=== PATIENT | female | born 1945 | race Caucasian/White ===

== ENCOUNTER 2016-09-30 15:35 | Inpatient (IN) | payer MEDICARE, OTHER ==
[~2016-09-30] VITALS: Ht 162.6 cm; Wt 82.9 kg
[~2016-09-30 15:35] MED LIST: ASCO100089 PO; ASPI-973 PO; DICL75TA6 PO; HYDR25TA4 PO; LEVO125T6 PO; LISI-571 PO; METF850T2 PO; METO-272 PO; MULT-1007 PO; OMEP10CA2 PO; OXYB5TAB10 PO; PARO20TA5 PO; SIMV40TA5 PO
[2016-09-30 15:40] VITALS: BP 146/96; PULSE 88; RESP 18; O2SAT 100
--- NOTE | 2016-09-30 15:56 | ED.REPORT ---
HPI-General Illness Date of Service Sep 30, 2016 ED Provider: Mickey Mckeon DO A 71 year old female with a history of stroke, lymphoma, heart stents, and pinched neck nerves presents to the ED complaining of SOB onset 3 days ago. SOB is only present when the patient moves, only being able to take 5 steps before she needs to catch her breath. Associated symptoms include mild chest pain described as cool and heavy feeling present from her left to right armpit that accompanies SOB episodes. She reports that she has never felt this way before. Symptoms are slightly similar to when she had a heart stent in 20 years ago which had accompanying chest pain and SOB. She denies any cough ,fever, or sickness. She recently tested negative for Pneumonia after receiving a chest XRay. 1-2 years ago the patient had a stroke, and 6 months later she had two pinched nerves in her neck that felt like a stroke. She has an appointment in 4 days to see her basket operator, Dr. Alfaro. Nursing Notes Stated Complaint: SOB Chief Complaint: Chest Pain Nursing Notes Reviewed: Yes Allergies: Coded Allergies: No Known Allergies (Verified Allergy, Unknown, 09/30/16) Scheduled Ascorbic Acid (Vitamin C) 1,000 Mg Tab.chew 1,000 MG PO DAILY Aspirin (Aspirin) 81 Mg Tablet 81 MG PO DAILY Diclofenac ER (Diclofenac ER) 75 Mg Tablet.dr 75 MG PO DAILY Hydrochlorothiazide (Hydrochlorothiazide) 25 Mg Tablet 25 MG PO DAILY Levothyroxine (Levothyroxine) 125 Mcg Tablet 125 MCG PO QAM Losartan Potassium (Losartan Potassium) 25 Mg Tablet 25 MG PO DAILY Metformin (Metformin) 850 Mg Tablet 850 MG PO BIDWM Metoprolol Succinate ER (Metoprolol Succinate ER) 50 Mg Tab.er.24h 25 MG PO DAILY Multivit with Calcium,Iron,Min (Therapeutic M) 1 Each Tablet 1 EACH PO DAILY Oxybutynin Chloride (Oxybutynin Chloride) 5 Mg Tablet 5 MG PO BID Paroxetine (Paroxetine) 20 Mg Tablet 40 MG PO DAILY Simvastatin (Simvastatin) 40 Mg Tablet 40 MG PO DAILY General Time Seen by MD: 15:56 Chief Complaint Other (Shortness of breathe) Hx Obtained From: Patient Arrived By: Walk-in Sudden in Onset?: Yes Onset Occurred: 3 days ago Symptom Duration: Intermittent Recent Healthcare: No recent doctor visit Similar Sx Previous: No Past Medical History Past Medical History Urinary incontinence CVA, november 2014 lymphoma pinched neck nerve Reports: Coronary artery disease, Diabetes mellitus, Hyperlipidemia, Hypertension, Stroke Past Surgical History Cardiac stent placement Back surgeries for scoliosis with fusions. Family History noncontributory Smoking History Unknown if Ever Smoker Social History Drug Use: Denies drug use Other Social History: , Local resident Ambulatory Status Independent Review of Systems Denies sickness. Full Review of Systems Constitutional: Denies: Fever Respiratory: Reports: Shortness of breath, Denies: Non-productive cough Cardiovascular: Reports: Chest pain Complete sys rev & neg: except as marked. Physical Exam Vital Signs Vital Signs Date Time Temp Pulse Resp B/P Pulse Ox O2 Delivery O2 Flow Rate FiO2 09/30/16 17:36 78 19 131/70 98 09/30/16 15:40 36.7 88 18 146/96 100 Room Air Initial VS: Reviewed General/Constitutional: Awake, Alert Head / Eyes: Atraumatic, Normocephalic, PERRL, EOMI ENT: Atraumatic, Airway patent, Mucous membranes moist Neck: Atraumatic, Full range of motion Respiratory / Chest: Atraumatic, Breath sounds = bilat Cardiovascular: Heart rate NL, Regular rhythm, Heart sounds NL Abdomen: Atraumatic, No guarding, No rebound Back: Atraumatic, Full range of motion Upper Extremities Upper Extremity / MS: Atraumatic, Full range of motion Wrist / Hand: Atraumatic, Full range of motion Lower Extremity / Pelvis / MS: Atraumatic, Full range of motion Skin: Atraumatic, Color NL Neurologic: Oriented X3, Speech NL Interpretation & Diagnostics Lab Results Interpretation Result Diagram: 09/30/16 1600 09/30/16 1600 Test 09/30/16 16:00 White Blood Count 7.5th/mm3 (3.8-10.1) Red Blood Count 4.49mil/mm3 (3.90-5.20) Hemoglobin 11.3g/dL (12.0-15.6) Hematocrit 35.4% (35.0-46.0) Mean Corpuscular Volume 78.8fL (81-100) Mean Corpuscular Hemoglobin 25.2pg (27.0-35.0) Mean Corpuscular Hemoglobin Concent 31.9% (32.0-37.0) Red Cell Distribution Width 14.1% (12.3-15.4) Platelet Count 379bil/L (150-400) Neutrophils (%) (Auto) 66.9% (40-74) Lymphocytes (%) (Auto) 23.3% (14-46) Monocytes (%) (Auto) 8.4% (4-12) Eosinophils (%) (Auto) 0.5% (0-5) Basophils (%) (Auto) 0.5% (0-3) Activated Partial Thromboplast Time 26.1sec (22.8-33.0) Sodium Level 135mEq/L (134-144) Potassium Level 4.4mEq/L (3.5-5.2) Chloride Level 96mEq/L (97-108) Carbon Dioxide Level 20mmol/L (18-29) Blood Urea Nitrogen 35mg/dL (8-27) Creatinine 1.54mg/dL (0.57-1.00) Estimat Glomerular Filtration Rate 47mL/min (>59) Glucose Level 128mg/dL (60-99) Calcium Level 8.9mg/dL (8.5-10.1) Magnesium Level 1.5mg/dL (1.6-2.6) Total Bilirubin 0.2mg/dL (0.0-1.2) Aspartate Amino Transf (AST/SGOT) 20U/L (0-50) Alanine Aminotransferase (ALT/SGPT) 22U/L (0-32) Alkaline Phosphatase 71U/L (25-165) Troponin T < 0.010ug/L (0.0-0.011) Total Protein 6.8g/dL (6.4-8.4) Albumin 4.2g/dL (3.4-5.0) Hold Hartman Top Tube Received (Received) CT Chest Interpretation PROCEDURE: CT ANGIO CHEST PULMONARY EMBOLISM ([id number]) IMPRESSION: 1. Suboptimal examination due to respiratory motion artifacts in lower lobes. 2. There are small filling defects in lower lobe basal segmental arteries bilaterally suspicious for small pulmonary emboli. 3. Small bilateral effusions. 4. Reflux of contrast into the hepatic vein, suggesting poor cardiac output. Dictated by: Bro Villeda M.D. on 09/30/2016 at 18:02 Approved by: Bro Villeda M.D. on 09/30/2016 at 18:10 Interpretation / Wet Read by: Discussed w radiologist Re-Eval/Medical Decision Med Decision/Clinical Course Small bilateral pulmonary emboli, will anticoagulate and admit. Heparin initiated in the ER Source of Hx: Old records Time of Eval: 15:56 Re-Evaluation/Progress Note: Rechecked patient and explained plan for treatment. Consultation : Referral / Consult Name: Lamont Guajardo MD Call Returned at: 18:31 Leaf Sticker: Agrees with eval, Agrees with plan, Accepts admit Note: Discussed patient case with Dr. Guajardo who accepts patient admit. Counseled Regarding: Diagnosis, Lab results, Need for admission Discharge & Departure Primary Impression: Pulmonary embolism Disposition: ADMITTED TO HOSPITAL Discharge Condition All VS Reviewed: Yes Condition: Improved Referrals: NOPCP (PCP) Crit Care Except Billable Proc Time Spent: 30-74 minutes Services Performed: Patient management by me, Time spent at bedside, Reviewing test results Critical Care Notes: See MDM Scribe Attestation Portions of this note were transcribed by Mark Anthony Gill. I, Dr. Mckeon personally performed the history, physical exam and medical decision-making; I reviewed and confirmed the accuracy of the information in the transcribed note. Signed by: Crispin Carranza, 09/30/2016 [id number]. copies to: Mickey Grant DO Sep 30, 2016 15:56 Mark Anthony Gill Sep 30, 2016 16:05
[2016-09-30 16:13] LABS: BASOPHILS % (AUTO) 0.5 % (0-3); EOSINOPHILS % (AUTO) 0.5 % (0-5); MONOCYTES % (AUTO) 8.4 % (4-12); Mean Corpuscular Hemoglobin 25.2 pg (27.0-35.0); Mean Corpuscular Volume 78.8 fL (81-100); NEUTROPHILS % (AUTO) 66.9 % (40-74); Platelet Count 379 bil/L (150-400)
[2016-09-30 16:39] LABS: TROPONIN T < 0.010 ug/L (0.0-0.011)
[2016-09-30 16:50] LABS: Magnesium 1.5 mg/dL (1.6-2.6)
[2016-09-30 17:36] VITALS: BP 131/70; PULSE 78; RESP 19; O2SAT 98
--- NOTE | 2016-09-30 18:12 | DRSVH ---
PROCEDURE: CT ANGIO CHEST PULMONARY EMBOLISM ([id number]) INDICATIONS: elevated ddimer, dyspnea, h/o Ca TECHNIQUE: After the administration of intravenous contrast, 2 mm thick sections acquired from the pulmonary api ankush to the posterior costophrenic angles. 3-dimensional maximum intensity projection (MIP) coronal a nd sagittal reformats were then acquired through the thorax. For radiation dose reduction, the follo wing was used: automated exposure control, adjustment of mA and/or kV according to patient size. COMPARISON: JOSELYN Marc, CHEST 2VW, 09/30/2016, 12:46 PM. FINDINGS: Image quality: Somewhat suboptimal because of respiratory motion artifacts in lower spine laterally. Pulmonary arteries: Pulmonary arteries are normal in size. There are small intraluminal filling defe cts in lower lobe basal segmental arteries suggesting central pulmonary embolism. Lungs and pleura: There are small bilateral pleural effusions. No pneumothorax. Central and peripher al airways are patent. Mediastinum: Heart size is normal, without pericardial effusion. No mediastinal or hilar adenopathy . Thoracic aorta is normal in caliber and enhancement. Esophagus is normal in caliber, without hiat al hernia. Bones and chest wall: No suspicious bony lesions. Ribs and thoracic spine appear intact throughout. Thyroid gland is normal. No axillary or supraclavicular adenopathy. Abdomen: Visualized upper abdominal solid organs appear normal in the early arterial phase of enhanc ement. IMPRESSION: 1. Suboptimal examination due to respiratory motion artifacts in lower lobes. 2. There are small filling defects in lower lobe basal segmental arteries bilaterally suspicious for small pulmonary emboli. 3. Small bilateral effusions. 4. Reflux of contrast into the hepatic vein, suggesting poor cardiac output. Dictated by: Bro Villeda M.D. on 09/30/2016 at 18:02 Approved by: Bro Villeda M.D. on 09/30/2016 at 18:10
[2016-09-30] MEDS ORDERED: Heparin 25K Unit/500mL 0.45 NS 25,000 UNIT in IV Premix 1 EACH IV ONE (18:20)
[2016-09-30] MEDS ORDERED: Heparin 5,000 Unit/mL Inj IVPUSH ONE (18:20)
[2016-09-30] MEDS ORDERED: LOSA25TA21 PO (18:32)
[2016-09-30] MEDS ORDERED: MULT-140 PO (18:32)
[2016-09-30] MEDS ORDERED: Ondansetron 2 mg/mL 2 mL Inj IVPUSH PRN (18:55)
[2016-09-30] MEDS ORDERED: Alum-Mag Hydrox-Simeth 30 mL Suspension PO PRN (18:55)
[2016-09-30 19:24] VITALS: BP 129/72; PULSE 82; RESP 21; O2SAT 97
[2016-09-30] MEDS ORDERED: Heparin 5,000 Unit/mL Inj IVPUSH PRN (19:25)
[2016-09-30] MEDS ORDERED: Heparin 25K Unit/500mL 0.45 NS 25,000 UNIT in IV Premix 1 EACH IV SCH (19:25)
[2016-09-30] MEDS ORDERED: Magnesium Sulf 2 Gm/50mL Water 2 GM in IV Premix 1 EACH IV ONE (19:30)
--- NOTE | 2016-09-30 19:35 | PCM.HPMED ---
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 She has been complaining of shortness of breath over the last 3-5 days or so. Patient stated she will become short of breath on minimal exertion such as a few steps. She went to see her primary care doctor who decided his that emergency room for for evaluation. Patient denied denied chest pain but stated she has been having some chest heaviness similar to when she have her heart attack several years ago. Indeed she is asking to be seen by pcmh specialist because she thinks her shortness of breath is cardiac. Patient usually ambulates with a cane due to by problem. She stated the shortness of breath is new. She denied any fever , chills, abdominal pain, lower extremity swelling. In the emergency room CT scan of the chest with PE protocol showed bilateral pulmonary embolism. Review of Systems: Review of systems is pertinent for shortness of breath which exacerbated on exertion or otherwise a comprehensive review by 12 points is negative Allergies Coded Allergies: No Known Allergies (Verified Allergy, Unknown, 09/30/16) Home Medications Scheduled Ascorbic Acid (Vitamin C) 1,000 Mg Tab.chew 1,000 MG PO DAILY Aspirin (Aspirin) 81 Mg Tablet 81 MG PO DAILY Diclofenac ER (Diclofenac ER) 75 Mg Tablet.dr 75 MG PO DAILY Hydrochlorothiazide (Hydrochlorothiazide) 25 Mg Tablet 25 MG PO DAILY Levothyroxine (Levothyroxine) 125 Mcg Tablet 125 MCG PO QAM Losartan Potassium (Losartan Potassium) 25 Mg Tablet 25 MG PO DAILY Metformin (Metformin) 850 Mg Tablet 850 MG PO BIDWM Metoprolol Succinate ER (Metoprolol Succinate ER) 50 Mg Tab.er.24h 25 MG PO DAILY Multivit with Calcium,Iron,Min (Therapeutic M) 1 Each Tablet 1 EACH PO DAILY Oxybutynin Chloride (Oxybutynin Chloride) 5 Mg Tablet 5 MG PO BID Paroxetine (Paroxetine) 20 Mg Tablet 40 MG PO DAILY Simvastatin (Simvastatin) 40 Mg Tablet 40 MG PO DAILY PMH 1. Type II diabetes 2. Hypertension 3. CVA 4. Hypercholesterolemia 5. Coronary artery disease 6. Urinary incontinence 7. Lymphoma Surgical History Cardiac stent placement Back surgeries for scoliosis with fusions Family History Family history is reviewed and is noncontributory to the present illness Social History Hx Alcohol Use: No Hx Substance Use: No Smoking Status: Unknown if Ever Smoker Living Arrangement: with Family Exam Vital Signs Vital Sign - Last Date Time Temp Pulse Resp B/P Pulse Ox O2 Delivery O2 Flow Rate FiO2 09/30/16 17:36 78 19 131/70 98 09/30/16 15:40 36.7 Room Air Exam Constitutional: Well-nourished female in bed comfortably. In no acute distress. HEENT: Normocephalic and atraumatic. Sclerae anicteric. PERRL Mouth: Muscle mucosa, no thrush. Neck: Supple, no JVD, no carotid bruit, trachea is midline Chest: Normal respiratory effort and no chest wall deformity or tenderness. Long: Clear bilateral renal cortical, no wheezing Heart: S1, S2 regular rate and rhythm. No gallop, no murmur Abdomen: Soft, nontender, nondistended. Bowel sounds normal or quadrant. No palpable mass Extremities: No edema, no calf tenderness. No cyanosis Neuro : Grossly nonfocal Lab and Diagnostics Result Diagram: 09/30/16 1600 09/30/16 1600 X-Rays, CTs and MRIs CT angiogram of the chest reviewed : 1. Suboptimal examination due to respiratory motion artifacts in lower lobes. 2. There are small filling defects in lower lobe basal segmental arteries bilaterally suspicious for small pulmonary emboli. 3. Small bilateral effusions. 4. Reflux of contrast into the hepatic vein, suggesting poor cardiac output. Assessment & Plan 1. Acute pulmonary embolism 2. Acute renal failure 3. Bilateral pleural effusion Chronic medical problems 1. Type II diabetes 2. Hypertension 3. CVA 4. Hypercholesterolemia 5. Coronary artery disease 6. Urinary incontinence 7. Lymphoma Admitting inpatient . Telemetry monitoring/. Heparin protocol for pulmonary embolism. Coumadin or novel anticoagulant for long-term treatment and prophylaxis depending on trend of creatinine. Obtain 2D echocardiogram. Start cautious hydration with normal saline at 50 mL per hour for acute renal failure. Repeat BMP in the morning. Hold losartan, Lovenox, metformin Sliding scale insulin with low scale correction. Obtain mammogram and A1c. Medication reviewed and reconciled. ( see orders ) . Replace magnesium . Hospital stay between 2-3 days anticipated. VTE Prophylaxis: Other (Heparin protocol for PE ) Resuscitation Status: CPR: Attempt Resuscitation Time spent 75 minutes Lamont Guajardo MD Sep 30, 2016 19:35
[2016-09-30 19:46] VITALS: BP 116/73; PULSE 62; RESP 18; O2SAT 95
--- NOTE | 2016-09-30 19:50 | NUR ---
Admission Note Pt admitted to [facility] from ER on stretcher at 1935, alert and orientedx3, denies any pain/NV/Fever/chills/dizziness/vertigo. Pt states non productive cough intermittently,SOB with activities. Stood up and walked to bed on arrival,gait steady. BP116/73,HR62 RR 18,SPO2 95% on RA, T36.6. O2 2l applied per MD oral instruction. Moderately decreased lung sounds bilaterally, coarse lung sounds bilateral posterior LLs. Tele applied SR 76 IVCD per monitoring manager. No murmur. Abdomen soft, non tender, BT active. No edema at bilateral LLs. Heparin bolus 6400 units administered at ER and Heparin drip 18units/kg/hr administered at ER per [employer] S[employer]IOR MANAGER Manuelito. S report, and running on arrival. Need 2nd IV to administer Mg and D5WNS. Care ongoing. Call light oriented to pt.
[2016-09-30 19:58] VITALS: O2SAT 96
[2016-09-30] MEDS ORDERED: Insulin Human REGular 300 Unit/3 mL Inj SUBQ SCH (20:30)
[2016-09-30] MEDS ORDERED: Dextrose 5% 0.9% NaCl 1,000 ML IV SCH (20:45)
[2016-10-01] VITALS (7 sets, daily range): BP systolic 119–143; BP diastolic 69–91; PULSE 74–85; RESP 18; O2SAT 96–100
[2016-10-01 02:46] LABS: APPEARANCE,URINE CLEAR (CLEAR,HAZY); COLOR,URINE YELLOW (YELLOW); OCCULT BLOOD,URINE TRACE (NEGATIVE)
[2016-10-01 02:47] LABS: UROBILINOGEN,URINE NORMAL (NORMAL)
--- NOTE | 2016-10-01 03:27 | NUR ---
PTT Heparin Lab called at 209: PTT 232 , Heparin drip hold, PTT will be redrawn at 0220 in 1 hour from last PTT drawn per DVT/PE protocol,lab notified,Dr. Castro pagealessio at 214,no order given. Lab called at 309 PTT 239,Heparin continue held, PTT will be redrawn at 0320 in 1 hour from last PTT drawn,lab notified, Dr. Castro paged at 318,no order given. Addendum: 10/01/16 at 423 by SCOTT TENORIO RN Lab called at 358: PTT 94.1. Resume Heparin at 0400,decrease 1unit/kg/hr,restart rate at 17unit/kg/hr, dose change verified with urvashi Archuleta. Next PTT in 6hr at 1000. Addendum: 10/01/16 at 423 by SCOTT TENORIO RN No active bleeding noted.
--- NOTE | 2016-10-01 05:07 | NUR ---
Low urine output Low urine output 150ml for 10hrs. PVR 83 ml. D5WNS 50ml/hr running. Dr. Castro paged at [phone], no order given, said "talk to day team". Push oral fluids.
[2016-10-01 06:42] LABS: BASOPHILS % (AUTO) 1.5 % (0-3); EOSINOPHILS % (AUTO) 1.7 % (0-5); MONOCYTES % (AUTO) 9.4 % (4-12); Mean Corpuscular Hemoglobin 25.1 pg (27.0-35.0); Mean Corpuscular Volume 77.1 fL (81-100); NEUTROPHILS % (AUTO) 61.3 % (40-74); Platelet Count 321 bil/L (150-400)
[2016-10-01 06:57] LABS: Magnesium 2.1 mg/dL (1.6-2.6)
[2016-10-01] MEDS: PARoxetine 20 mg Tablet PO SCH (08:36)
[2016-10-01] MEDS: MeTOProlol XL 25 mg ER24 Tablet PO SCH (08:36)
[2016-10-01] MEDS: Insulin Human REGular 300 Unit/3 mL Inj SUBQ SCH ×4 (08:38→21:48)
--- NOTE | 2016-10-01 11:01 | DRSVH ---
[facility] [address] [place] [address] Echocardiogram Report Name: CARLOTA DIAL JStudy Date: 10/01/2016 Height: 64 in Hospital Exam Location: [facility] Weight: 180 lb Gender: Female BSA: 1.9 m2 : 1945 Age: 71 yrs BP: 121/69 mmHg Reason For Study: Pulmonary- Embolism, SOB History: CAD Performed By: Maynor Whittaker Referring Physician: MIGUEL LAGUNAS Interpretation Summary The left ventricle is mildly dilated. The ejection fraction is estimated to be 15-20%. There is severe global hypokinesis of the left ventricle. There is mid inferior wall akinesis. There is apical inferior wall akinesis. Assessment of diastolic parameters suggests a pseudonormalization pattern, consistent with elevated filling pressures. The right ventricle is mildly dilated. Right ventricular systolic function is moderately reduced. There is severe mitral regurgitation. Flow reversal noted in pulmonary veins consistent with significant mitral regurgitation. The aortic valve is moderately calcified. A bicuspid aortic valve cannot be excluded. Leaflet mobility is mildly reduced. There is no hemodynamically significant valvular aortic stenosis. The IVC is dilated (diameter is greater than 2.1 cm) and it collapses less than 50% with a sniff. This suggests a high right atrial pressure of 15 mm Hg. Procedure: A two-dimensional transthoracic echocardiogram with color flow and Doppler was performed. The study quality was technically adequate. There is no prior echocardiogram noted for this patient. The patient was in normal sinus rhythm during the exam. The patient had a bundle branch block rhythm during the exam. Left Ventricle: The left ventricle is mildly dilated. Left ventricular wall thickness is mildly increased. There is no thrombus. The ejection fraction is estimated to be 15-20%. There is severe global hypokinesis of the left ventricle. There is mid inferior wall akinesis. There is apical inferior wall akinesis. Assessment of diastolic parameters suggests a pseudonormalization pattern, consistent with elevated filling pressures. The E/E' ratio is abnormal. Right Ventricle: The right ventricle is mildly dilated. Right ventricular systolic function is moderately reduced. Atria: The left atrium is moderately dilated. The right atrium is mildly dilated. The interatrial septum is intact with no evidence for an atrial septal defect. Mitral Valve: The mitral valve leaflets appear mildly thickened, but open well. There is mild mitral annular calcification. The mitral valve leaflets are slightly calcified. There is severe mitral regurgitation. Flow reversal noted in pulmonary veins consistent with significant mitral regurgitation. Aortic Valve: The aortic valve is moderately calcified. A bicuspid aortic valve cannot be excluded. Leaflet mobility is mildly reduced. The peak aortic velocity is 1.6 m/sec. The calculated aortic valve area is 0.9 cm2. Reduced KERLINE may be secondary to low LV function. There is no hemodynamically significant valvular aortic stenosis. No aortic regurgitation is present. Tricuspid Valve: The tricuspid valve is not well visualized, but is grossly normal. Pulmonary artery pressures cannot be estimated because of the lack of a measurable TR jet velocity. There is mild tricuspid regurgitation. Pulmonic Valve: The pulmonic valve is not well seen, but is grossly normal. There is trace pulmonic regurgitation. Great Vessels: The aortic root is normal size. The dimensions of the ascending aorta are normal. The pulmonary artery is normal size. The IVC is dilated (diameter is greater than 2.1 cm) and it collapses less than 50% with a sniff. This suggests a high right atrial pressure of 15 mm Hg. Pericardium/ Pleura There is no pericardial effusion. There is no pleural effusion. MMode/2D Measurements & Calculations LVIDd: 5.5 cm RA long axis LVOT diam: 2.1 cm LVIDs: 4.9 cm LA A2 area: 19.1 cm Ao root diam FS: 11.0 % LA A4 area: 20.4 cm RA area EPSS: 2.0 cm LA length (vol) asc Aorta Diam IVSd: 1.0 cm : 20.2 cm LVPWd: 0.95 cm LA vol: 62.4 ml RA vol Ao Arch Diam (Prox LA vol index : 64.2 ml Trans): 2.2 cm RA : 34.3 mm2 IVC diam: 2.2 cm LV deal. diameter/BSA LV sys. diameter/BSA TAPSE: 1.1 cm (cm/m^2): 2.9 (cm/m^2): 2.6 Doppler Measurements & Calculations Ao V2 max MV E max jerome MV E/A: 1.3 PA V2 max : 162.9 cm/sec : 95.6 cm/sec Med Peak E' Jerome : 49.8 cm/sec Ao max PG MV A max jerome PA mean PG : 10.6 mmHg : 71.8 cm/sec E/E' med: 39.5 : 0.47 mmHg Ao mean PG Lat Peak E' Jreome MR ERO: 0.27 cm2 LVOT Max Jerome E/E' lat: 21.1 : 48.6 cm/sec E/e' average KERLINE(I,D) : 0.90 cm sev ratio MV dec time Ao V2 mean LV V1 max PG MR flow rate : 0.15 sec : 127.4 cm/sec : 130.8 cm3/sec Ao V2 VTI: 32.2 cm LV V1 VTI: 8.3 cm MR PISA radius KERLINE(V,D): 1.0 cm2 PA V2 mean KERLINE indexed to BSA : 32.0 cm/sec (cm^2/m^2): 0.48 PA pr(Accel) : 43.2 mmHg Reading Physician:MARRY
--- NOTE | 2016-10-01 13:42 | PCM.PNMED ---
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 This morning, she continues to have dyspnea on exertion, especially when she gets up to bedside commode and even when moving around in bed. She has chest heaviness. She does not have fever, chills, cough, or leg swelling or leg pain. She reports that she received chemotherapy and radiation to her neck and chest for lymphoma 17 years ago. Exam Vital Signs Vital Sign - Last Date Time Temp Pulse Resp B/P Pulse Ox O2 Delivery O2 Flow Rate FiO2 10/01/16 10:35 36.2 77 18 119/76 100 Nasal Cannula 2.00 Intake and Output 09/30/16 09/30/16 10/01/16 Cumulative From/Thru 15:00 23:00 07:00 09/30/16 15:40 - 10/01/16 06:17 Intake Total 716 ml 716 ml Output Total 150 ml 150 ml Balance 566 ml 566 ml Intake Oral 200 ml 200 ml IV Total 516 ml 516 ml Output Urine Total 150 ml 150 ml Exam Constitutional: Well-nourished female in bed comfortably. In no acute distress. HEENT: Normocephalic and atraumatic. Sclerae anicteric. PERRL Mouth: Muscle mucosa, no thrush. Neck: Supple, no JVD, no carotid bruit, trachea is midline Chest: Normal respiratory effort and no chest wall deformity or tenderness. Lung: Clear to auscultation bilaterally with no rales, rhonchi, or wheezing. Heart: S1, S2 regular rate and rhythm. No gallop, no murmur Abdomen: Soft, nontender, nondistended. Bowel sounds normal or quadrant. No palpable mass Extremities: No edema, no calf tenderness. No cyanosis Neuro : Grossly nonfocal IVs and Medications Medications Reviewed: Medications were reviewed in detail Lab and Diagnostics Result Diagram: 10/01/1620 10/01/16 06 X-Rays, CTs and MRIs PROCEDURE: CT ANGIO CHEST PULMONARY EMBOLISM IMPRESSION: 1. Suboptimal examination due to respiratory motion artifacts in lower lobes. 2. There are small filling defects in lower lobe basal segmental arteries bilaterally suspicious for small pulmonary emboli. 3. Small bilateral effusions. 4. Reflux of contrast into the hepatic vein, suggesting poor cardiac output. Approved by: Bro Villeda M.D. 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 1. Acute pulmonary embolism, present on admission, active. -Visualized on CT scan -Heparin protocol for pulmonary embolism. -Telemetry monitoring -Bilateral venous duplex ultrasound to look for DVT 2. Systolic congestive heart failure, chronicity unknown, present on admission, active. -Pt has a history of CAD and radiation therapy for lymphoma. Possible acute coronary syndrome may have acutely worsened. -Echocardiogram today shows EF 15-20% -Likely the cause of bilateral pleural effusions -Daily weight -Monitor input and output -Continue aspirin 81 mg once daily, atorvastatin 20 mg at bedtime, and metoprolol succinate 25 mg daily. Hold JANNETTE inhibitor for now due to RHETT. -Stopped IV fluids -Consider adding furosemide 40 mg daily -Cardiology consulted and following. Their time and recommendations are appreciated. -Possible cardiac catheterization tomorrow to assess coronary artery disease 3. Bilateral pleural effusion, present on admission, active. -Likely secondary to above 4. Acute renal failure, present on admission, improving. -BUN 35, Cr 1.54 on admission -Possibly cardiorenal -Hold losartan, Lovenox, metformin -Stopped IV fluids 5. Hypomagnesium, acute, present on admission, resolved. -Pt was given magnesium replacement Chronic medical problems 1. Type II diabetes, on metformin -HgbA1c is 7.1% -Low dose correctional scale -Monitor blood glucose level and consider adding basal insulin 2. Hypertension -Continue hydrochlorothiazide 25 mg once daily and metoprolol succinate 25 mg once daily -Hold JANNETTE inhibitor due to RHETT as above 3. CVA, chronic. -Continue aspirin and atorvastatin 4. Hypercholesterolemia -Continue atorvastatin 5. Coronary artery disease -See above 6. Urinary incontinence -Patient has had a decreased urine output but no post residual volume 7. Lymphoma -In remission Acetaminophen as needed for pain or fever. Zofran as needed for nausea/vomiting. Senna and Miralax as needed for constipation. Maalox as needed for heartburn. VTE Prophylaxis: Other (Heparin protocol for PE ) Resuscitation Status: CPR: Attempt Resuscitation Time spent 30 minutes Attending Statement I have seen and evaluated patient at bedside in addition to directly supervising care provided by resident physician. I agree with above documentation. Katty Munoz DO Oct 01, 2016 13:34 Bob Phillips DO Oct 02, 2016 07:42
[2016-10-01] MEDS ORDERED: Polyethylene Glycol (PEG) 17 Gm Powder PO PRN (14:00)
--- NOTE | 2016-10-01 14:00 | PCM.CHPCAR ---
Consult Subjective Date of service Oct 01, 2016 Date of admit Sep 30, 2016 at 18:59 Provider Requesting Consult Primary Care Physician Primary Care Physician: Other,Physician Chief Complaint Exertional angina, BEVERLY, PE History of Present Illness This is a very pleasant 80-year-old lady with history of coronary artery disease and stent placement 15 years ago done in [facility] (her occupational health specialist is Dr. Henry) at this point we do not have medical records and do not known which artery was stented; the patient states that she did not have heart attack back to that time; she also has history of hypertension, hyperlipidemia, diabetes mellitus, hypothyroidism, CKD; she has documented history of stroke in 2014 and received TPA ( back to that time she had right sided paresthesia and weakness); she had other episodes also concerning for TIA. Also in 2014 after her stroke she had left carotid artery endarterectomy done. The patient also has hx of non-Hodgkins lymphoma diagnosed 15 y/o and had Chemo +Radiation therapy in neck and chest area for 9 month back to that time; she states that she is considered cancer free currently. She does not know the type of chemotherapy used back to that time. The patient tells me that since 2014 stroke she always has been feeling tired, fatigued, but two weeks ago she noticed that her fatigue got worse. She went to see her occupational health specialist Dr. Henry two weeks ago and he ordered for her what she describes dobutamine stress test which was done this Monday. That time she did not have any difficulty breathing or chest discomfort. She also saw her primary care provider Dr. Jaimes this Monday for medication refills. After that she started having dyspnea on exertion and exertional chest pressure/heaviness. Her dyspnea on exertion and chest heaviness was getting worse. She was getting dyspnea on exertion on short distances; also with walking she was getting quickly intense chest heaviness in the middle of her chest radiating to her both armpit, also felt nauseated, a little lightheaded and clammy, and had feeling of coolness in my chest, also felt her heart racing, and felt presyncopal; denies any syncopal episode. Chest heaviness was alleviated with rest within 5 minutes; she has been getting this chest heaviness every time with physical activity; at night she uses one pillow , and was able to lay down flat; denies PND; since she has been getting worse, yesterday she went to see her primary care provider again; she had CT chest angio done which showed PE of small vessels and she was admitted to [facility]. The patient states that symptoms she has been experiencing reminded her symptoms she had in 2014 when she had coronary stent placement, but this time symptoms were more intense than she had in the past. Currently at presentation she does not have any chest discomfort stating that when she is not moving, she does not get any chest heaviness but if she starts to move around she would get chest heaviness. She also does not have shortness of breath at rest. The patient tells me that 2-3 weeks ago she was sitting in the car, waiting of her and she wanted to put lipstick and when she looked in mirror and tried to smile, she noticed that the left corner of her mouth was dropping. She states that symptoms went away in 10 min and she did not address this with and medical provider. She denies hx of Atrial fibrillation, hx of any blood clots and denies ever been on anticoagulants. She also denies hx of bleeding. She never smoked tobacco, denies alcohol use or recreational drug use. She has positive FH of CAD with her father who had heart attack at age 38 and later had CABG at age 40s. Review of Systems Review of Systems Twelve points of review of systems are negative except the ones mentioned in history of present illness PMH Past Medical History CAD, s/p PCI in the past PAD HTN, HLD, DM type 2, h/o TIAs of non-Hodgkins lymphoma Hypothyroidism Past Surgical History She had neck surgery done in 2016. She had 2 back surgeries done several years ago left carotid artery endarterectomy 2014 Bedside Blood Glucose: 195 Scheduled Ascorbic Acid (Vitamin C) 1,000 Mg Tab.chew 1,000 MG PO DAILY (Reported) Aspirin (Aspirin) 81 Mg Tablet 81 MG PO DAILY (Reported) Diclofenac ER (Diclofenac ER) 75 Mg Tablet.dr 75 MG PO DAILY (Reported) Hydrochlorothiazide (Hydrochlorothiazide) 25 Mg Tablet 25 MG PO DAILY (Reported ) Levothyroxine (Levothyroxine) 125 Mcg Tablet 125 MCG PO QAM (Reported) Losartan Potassium (Losartan Potassium) 25 Mg Tablet 25 MG PO DAILY (Reported) Metformin (Metformin) 850 Mg Tablet 850 MG PO BIDWM (Reported) Metoprolol Succinate ER (Metoprolol Succinate ER) 50 Mg Tab.er.24h 25 MG PO DAILY (Reported) Multivit with Calcium,Iron,Min (Therapeutic M) 1 Each Tablet 1 EACH PO DAILY ( Reported) Oxybutynin Chloride (Oxybutynin Chloride) 5 Mg Tablet 5 MG PO BID (Reported) Paroxetine (Paroxetine) 20 Mg Tablet 40 MG PO DAILY (Reported) Simvastatin (Simvastatin) 40 Mg Tablet 40 MG PO DAILY (Reported) Discontinued Medications Lisinopril (Lisinopril) 5 Mg Tablet 5 MG PO DAILY (Reported) Multivitamin (Multi-Vitamin Daily) 1 Each Tablet 1 EACH PO DAILY (Reported) Omeprazole (Prilosec) 10 Mg Capsule.dr 10 MG PO DAILY (Reported) Current Inpatient Medications Current Medications Al Hydrox/Mg Hydrox/Simethicone 30 ml Q6 PRN PO; Start 09/30/16 at 18:55 Ondansetron HCl Dose range: 4 mg to 8 mg Q4H PRN IVPUSH; Start 09/30/16 at 18: 55 Acetaminophen 975 mg Q6H PRN PO Last administered on 10/01/16 03:42; Admin Dose 975 MG; Start 09/30/16 at 18:55 Aspirin 81 mg DAILY PO Last administered on 10/01/16 08:36; Admin Dose 81 MG; Start 10/01/16 at 08:30 Hydrochlorothiazide 25 mg DAILY PO Last administered on 10/01/16 08:36; Admin Dose 25 MG; Start 10/01/16 at 08:30 Levothyroxine Sodium 125 mcg DAILY PO Last administered on 10/01/16 08:36; Admin Dose 125 MCG; Start 10/01/16 at 08:30 Metoprolol Succinate 25 mg DAILY PO Last administered on 10/01/16 08:36; Admin Dose 25 MG; Start 10/01/16 at 08:30 Oxybutynin Chloride 5 mg BID PO Last administered on 10/01/16 08:36; Admin Dose 5 MG; Start 09/30/16 at 20:30 Paroxetine HCl 40 mg DAILY PO Last administered on 10/01/16 08:36; Admin Dose 40 MG; Start 10/01/16 at 08:30 Atorvastatin Calcium 20 mg HS PO Last administered on 09/30/16 21:39; Admin Dose 20 MG; Start 09/30/16 at 21:00 Heparin Sodium (Porcine) Per Protocol for a... PRN PRN IVPUSH; Start 09/30/16 at 19:25 Insulin Human Regular * Low Dose Insulin Algori... Q6H SUBQ; Start 09/30/16 at 20:30; Stop 09/30/16 at 23:12; Status DC Dextrose/Sodium Chloride 1,000 ml @ 50 mls/hr Q20H IV Last administered on 09/30 21:40; Admin Dose 50 MLS/HR; Start 09/30/16 at 20:45; Stop 10/01/16 at 20: 46 Insulin Human Regular * Low Dose Insulin Algori... ACHS SUBQ Last administered on 10/01/16 11:56; Admin Dose 1 UNIT; Start 10/01/16 at 07:30 Allergies: Coded Allergies: No Known Allergies (Verified Allergy, Unknown, 09/30/16) Social History Hx Alcohol Use: NoHx Substance Use: No Smoking Status: Unknown if Ever Smoker Living Arrangement: with Family Exam Vital Signs Vital Sign - Last Date Time Temp Pulse Resp B/P Pulse Ox O2 Delivery O2 Flow Rate FiO2 10/01/16 10:35 36.2 77 18 119/76 100 Nasal Cannula 2.00 Intake and Output 09/30/16 09/30/16 10/01/16 Cumulative From/Thru 15:00 23:00 07:00 09/30/16 15:40 - 10/01/16 06:17 Intake Total 716 ml 716 ml Output Total 150 ml 150 ml Balance 566 ml 566 ml Intake Oral 200 ml 200 ml IV Total 516 ml 516 ml Output Urine Total 150 ml 150 ml Objective General: no AKD ENT: dry mouth, sclera anicteric Neck: supple, JVP is not elevated Pulmo: normal breathing sounds bilaterally, bibasilar fine crackles appreciated , no wheezing. Cardio: RRR, heart sounds are distant, no murmur appreciated Abdomen: nontender with palpation Extremities: no LE edema Neuro: A&Ox3, no gross abnormalities. Lab and Diagnostics Result Diagram: 10/01/16 0620 10/01/16 0620 12-lead ECG On telemetry: sinus trhythm with hr in 70s, periodic PVCs and PVC couplets. Assessment & Plan Assessment This is 80-year-old lady with history of coronary artery disease and stent placement 15 years ago done in [facility], history of hypertension , hyperlipidemia, diabetes mellitus, hypothyroidism, CKD, h/o stroke, h/o of PAD with left carotid artery endarterectomy,hx of non-Hodgkins lymphoma and Chemo+Radiation 15 y/o admitted on 09/30/2016 with worsening BEVERLY and exertional angina, negative trop and on CT chest angio found to have small filling defects in lower lobe basal segmental arteries bilaterally suspicious for small pulmonary emboli and also found to have severe cardiomyopathy of unknown etiology and severe MR. # PE - CT chest angio from 09/30/2016 showed: mall filling defects in lower lobe basal segmental arteries bilaterally suspicious for small pulmonary emboli ; Small bilateral effusions; currently is on heparin drip # Exertional angina and BEVERLY - trop on admission negative; On EKG sinus rhythm with HR 86 bpm and LBBB (which she had before and is not new). # Severe Cardiomyopathy ECHO from today showed that severe cardiomyopathy with LV EF 15-20 % with severe global hypokinesis of the left ventricle with mid inferior wall akinesis and apical inferior wall akinesis; the right ventricle is mildly dilated with moderately reduced function; she has severe mitral regurgitation; The IVC is dilated (diameter is greater than 2.1 cm) and it collapses less than 50% with a sniff suggesting a high right atrial pressure of [address] chest angio from 09/30/2016 showed: mall filling defects in lower lobe basal segmental arteries bilaterally suspicious for small pulmonary emboli; Small bilateral effusions; The patient actually does not look fluid overloaded on exam, JVP is not elevate and does not have LE edema. She has been on heparin drip; she has been hemodynamically and clinically stable and currently asymptomatic. Unfortunately we do not have her previous medical cardiac records and hence do not know how her baseline heart function was Her current severe cardiomyopathy is likely multifactorial; PE could be contributing to her decreased RV function; she also has hx of CAD and has been having exertional angina with BEVERLY which could suggest ischemic contribution to her Cardiomyopathy. It should be noted that her Trop was negative on admission. The fact that she had chemotherapy+radiation for her non-Hodgkins lymphoma 15 y/o could be contributing to her cardiomyopathy also. She needs cardiac catheterization to rule out ischemic cause of cardiomyopathy, but currently she is stable clinically with negative trop on admission which indicates that she is does not have ACS going on; she has PE and is on heparin drip which we cannot discontinue currently so that to do cardiac cath. Her velevated central venous pressures could be from pulmonary HTN secondary to PE and severe MR. She already had dobutamine stress ECHO done last week in [place] and we will request the records of it and other pertinent cardiac records on Monday from [facility];. # Severe Mitral Regurgitation # RHETT on CKD - is improving; Labs on admission showed worsening CKD likely from her recent CT chest angio contrast use. She has normal electrolytes. # Hypothyroidism Recommendations would be: #Check trop and CK- Mb today again # Check TSH/free T4 #since the patient has severe cardiomyopathy and severe mitral insufficiency, it would beneficial to start her on Hydralazine 10 mg TID and Imdur 30 mg daily which would help to afterload reduction. Once her kidney function improves further, would recommend to switch her to Lisinopril 2.5 mg daily. Worsened CKD on admission was likely from CT chest angio contrast use. Imdur also would be helpful for for her CAD. # increase the dose of Atorvastatin to 80 mg daily # continue heparin drip and antiplatelet therapy # continue Metoprolol succinate 25 mg daily #would recommend to do bilateral LE vein ultrasound to rule out DVT. #Unless her repeat Trop is positive, would recommend that once her PE resolves, to consider cardiac cath after that. The case and patient plan was discussed with Bulk Sealer Operator Dr. Lane who saw and examined the patient and who agreed with the current assessment and plan . VTE Prophylaxis: Other (Heparin protocol for PE ) Plan: Pt. was examined, assessed and discussed with Danny Roy PA-C. Agrees with the plan. Resuscitation Status: CPR: Attempt Resuscitation Danny Roy PA-C Oct 01, 2016 12:[address] MD Oct 03, 2016 11:18
--- NOTE | 2016-10-01 14:38 | DRSVH ---
PROCEDURE: US VENOUS LEG DUPLEX BILATERAL INDICATIONS: Pulmonary embolus TECHNIQUE: Real-time imaging, as well as color and pulse Doppler interrogation, were performed of the deep veins of both legs from the inguinal ligament to the popliteal fossa. COMPARISON: None. FINDINGS: The deep veins are normally compressible, and free of intraluminal thrombus. Color and pu lse Doppler demonstrate normal phasic intravascular flow. There is normal augmentation response to d istal compression maneuver. IMPRESSION: No evidence of deep vein thrombosis involving either the right or left lower extremities . Dictated by: Natalie Mcwilliams MD, PhD on 10/01/2016 at 14:35 Approved by: Natalie Mcwilliams MD, PhD on 10/01/2016 at 14:36
[2016-10-01 15:21] LABS: Creatine Kinase 42 U/L (21-215)
[2016-10-01 15:22] LABS: TROPONIN T < 0.010 ug/L (0.0-0.011)
--- NOTE | 2016-10-01 16:23 | NUR ---
Social Work: Initial Assessment Data: Pt is a 71 y/o female admitted for pulmonary embolism. Pt's PCP is not listed, pt's insurance is Medicare with [employer] [facility] sup. EMR reviewed, readmit score is 1. SALAD [employer]F met with pt and spouse at bedside. Role explained. Pt states she lives in a single story home with her where she uses a cane or electric cart. Pt has no hx of HH or SNF, no LTC or VA benefits, and is not a caregiver. SALAD CHEF will continue to follow regarding d/c planning. Assessment: Pt who is independent at baseline. Plan: SALAD [employer]F will follow for d/c planning. [place] Addendum: 10/01/16 at 1627 by STEPHANIE FERNANDEZ Amended: Links added.
[2016-10-02 01:45] VITALS: BP 132/74; PULSE 77; RESP 18; O2SAT 96
[2016-10-02 05:02] VITALS: BP 128/80; PULSE 72; RESP 18; O2SAT 97
[2016-10-02 05:26] VITALS: PULSE 87
[2016-10-02 06:25] LABS: BASOPHILS % (AUTO) 0.8 % (0-3); EOSINOPHILS % (AUTO) 0.7 % (0-5); MONOCYTES % (AUTO) 9.5 % (4-12); Mean Corpuscular Volume 77.2 fL (81-100); NEUTROPHILS % (AUTO) 70.3 % (40-74); Platelet Count 349 bil/L (150-400)
--- NOTE | 2016-10-02 07:10 | NUR ---
Respiration Pt denies SOB at rest, significant SOB with activities,but improved per pt. SPO2 around 96% on O2 2L per nc. Occasional nonproductive cough, denies chest pain. Fine crackles at bilateral LL. Tele: sr 80s-90s ivcd pvcs. Heparin drip running (dose change see DVT/PE intervention). No active bleeding.
[2016-10-02] MEDS ORDERED: Isosorbide Mononitrate 30 mg ER24 Tablet PO SCH (07:30)
[2016-10-02] MEDS: PARoxetine 20 mg Tablet PO SCH (08:58)
[2016-10-02] MEDS: Insulin Human REGular 300 Unit/3 mL Inj SUBQ SCH ×2 (08:58→11:30)
[2016-10-02] MEDS: MeTOProlol XL 25 mg ER24 Tablet PO SCH (08:59)
[2016-10-02 09:18] VITALS: BP 142/87; PULSE 88; RESP 20; O2SAT 96
[2016-10-02 10:07] VITALS: PULSE 80
--- NOTE | 2016-10-02 10:31 | PCM.PNCARD ---
Subjective Date of service Oct 02, 2016 Chief Complaint Exertional angina, BEVERLY, PE History of Present Illness This is 80-year-old lady with history of coronary artery disease and stent placement 15 years ago done in [facility], history of hypertension , hyperlipidemia, diabetes mellitus, hypothyroidism, CKD, h/o stroke, h/o of PAD with left carotid artery endarterectomy,hx of non-Hodgkins lymphoma and Chemo+Radiation 15 y/o and currently cancer free, admitted on 09/30/2016 with worsening BEVERLY and exertional angina, negative trops and on CT chest angio found to have small filling defects in lower lobe basal segmental arteries bilaterally suspicious for small pulmonary emboli also found to have severe cardiomyopathy of unknown etiology and severe MR. Subjective: No overnight events. The patient tells me today that while lying down she does not have SOB and she is able to lay down flat. When she gets up to go to bathroom, or when she talks, then she has hard time catching her breath. Her SOB is worse today. She tells me that sitting up does not make her SOB better when she talks. She denies having any chest discomfort, denies palpitations. She felt nauseous in the morning, which happens to her periodically because she has chronic postnasal drip. She had a breakfast in the morning and enjoyed it. She voids normally. Exam Vital Signs Vital Sign - Last Date Time Temp Pulse Resp B/P Pulse Ox O2 Delivery O2 Flow Rate FiO2 10/02/16 10:07 80 10/02/16 09:18 36.8 20 142/87 96 Room Air 10/02/16 05:02 2.00 Intake and Output 10/01/16 10/01/16 10/02/16 Cumulative From/Thru 15:00 23:00 07:00 09/30/16 15:40 - 10/02/16 06:48 Intake Total 440 ml 795 ml 1951 ml Output Total 700 ml 650 ml 1500 ml Balance -260 ml 145 ml 451 ml Intake Oral 440 ml 250 ml 890 ml IV Total 545 ml 1061 ml Output Urine Total 700 ml 650 ml 1500 ml # Voids 1 1 # Bowel Movements 2 0 2 Additional Information: General: no AKD ENT: dry mouth, sclera anicteric Neck: supple, no carotid bruits Pulmo: normal vesicular sounds bilaterally, bibasilar fine crackles appreciated , no wheezing. Cardio: RRR, heart sounds are distant, no murmur appreciated; JVP is 8 cm at 45 degree. Abdomen: nontender with palpation Extremities: no LE edema Neuro: A&Ox3, no gross abnormalities. Lab and Diagnostics Result Diagram: 10/02/1660810/02/16608 12-lead ECG Sinus rhythm in 80s-90s bpm, occasional PVC couplets Assessment & Plan Assessment Assessment This is 80-year-old lady with history of coronary artery disease and stent placement 15 years ago done in [facility] (we do not have records) , history of hypertension, hyperlipidemia, diabetes mellitus, hypothyroidism, CKD, h/o stroke, h/o of PAD with left carotid artery endarterectomy, hx of non- Hodgkins lymphoma and Chemo+Radiation 15 y/o and currently cancer free, admitted on 09/30/2016 with worsening BEVERLY and exertional angina, negative trops and on CT chest angio found to have small filling defects in lower lobe basal segmental arteries bilaterally suspicious for small pulmonary emboli and also found to have severe cardiomyopathy of unknown etiology with severe MR. # PE - CT chest angio from 09/30/2016 showed: small filling defects in lower lobe basal segmental arteries bilaterally suspicious for small pulmonary emboli ; Small bilateral effusions; currently is on heparin drip # Exertional angina and BEVERLY - trop on admission and repeated trop later were negative; On EKG sinus rhythm with HR 86 bpm and LBBB (which she had before and is not new). # Severe Cardiomyopathy and severe Mitral regurgitation - the patient is worse clinically today, has increased SOB and has signs of fluid overload. Her SATs are normal though. Her Kidney function normalized ECHO from 10/01/2016 showed severe cardiomyopathy with LV EF 15-20 % with severe global hypokinesis of the left ventricle with mid inferior wall akinesis and apical inferior wall akinesis; the right ventricle is mildly dilated with moderately reduced function; she has severe mitral regurgitation; The IVC is dilated (diameter is greater than 2.1 cm) and it collapses less than 50% with a sniff suggesting a high right atrial pressure of 15 mmHg. Her BP is not well controlled today We still do not have her outside medical records. # RHETT on CKD - resolved # Hypothyroidism - she has abnormal TFTs. She needs adjustment of her Levothyroxine. Will defer this to hospitalist team. Recommendation: # Furosemide 40 mg IV now # Start her on Furosemide 20 mg IV daily # Stop HCTZ # Increase the dose of Hydralazine to 20 mg p.o. TID # Start Spironolactone 12.5 mg p.o. daily # Continue isosorbide mononitrate # Continue heparin drip # Chest X ray 2v today The case was discussed with Homicide Investigator Dr. Lane who agreed with Assessment and Plan Later today Dr. Lnae discussed the case with Cardiothoracic Surgeon Dr. [place] [facility] [place] [facility] decision was made to transfer the patient to [facility] for further management. Problems: VTE Prophylaxis: Other (Heparin protocol for PE ) VTE Mechanical Devices: Intermittant Pneumatic CD Resuscitation Status: CPR: Attempt Resuscitation Attending Statement Pt. was examined and discussed with Danny. Agreed with the assessment and the plan. Danny Roy PA-C Oct 02, 2016 10:[address] MD Oct 08, 2016 07:51
[2016-10-02] MEDS ORDERED: Furosemide 10 mg/mL 4 mL Inj IVPUSH ONE (10:50)
[2016-10-02 10:56] VITALS: BP 145/78; PULSE 86; O2SAT 96
--- NOTE | 2016-10-02 12:00 | DRSVH ---
PROCEDURE: X-RAY CHEST, TWO VIEWS ([id number]) INDICATIONS: pleural effusion, PE, SOB TECHNIQUE: 2 views of the chest were acquired. COMPARISON: [facility], CT, CT ANGIO CHEST PE, 09/30/2016, 17:20. [facility], CR, ANIKET ST 2VW, 09/30/2016, 12:46 PM. FINDINGS: Surgical changes and devices: None. Lungs and pleura: Small bilateral pleural effusions appear unchanged. There is left basilar infiltra te. Mediastinum: Mediastinal contours are normal. Heart size is normal. Bones and chest wall: No suspicious bony abnormalities. Soft tissues appear unremarkable. IMPRESSION: Small bilateral perfusions and left basilar infiltrates. Dictated by: Bro Villeda M.D. on 10/02/2016 at 11:57 Approved by: Bro Villeda M.D. on 10/02/2016 at 11:58
--- NOTE | 2016-10-02 13:45 | NUR ---
Transfer: Patient transferred to [facility] @ approx 1330 via ALS. Report called to Allen SWANSON. Heparin PTT 40.2 called by Rajani @ approx 1310. Heparin infusion increased to 14u/kg/hr and 2050u bolus administered prior to transport. Patient alert & oriented, no apparent distress at time of transport. Denies pain.
--- NOTE | 2016-10-02 13:56 | PCM.DC.MED ---
Discharge Summary Date of Service Oct 02, 2016 Dates of Hospitalization Date of Hospital Admission Sep 30, 2016 at 18:59 Date of Discharge: Oct 02, 2016 Providers: Admitting Physician: Lamont Guajardo MD Primary Care Physician: Other,Physician Attending Physician: Lamont Guajardo MD Diagnosis at Time of Discharge Diagnosis at Time of Discharge 1. Acute pulmonary embolism, present on admission, active. 2. Systolic congestive heart failure, chronicity unknown, present on admission, active. 3. Bilateral pleural effusion, present on admission, active. 4. Acute renal failure, present on admission, improving. 5. Hypomagnesium, acute, present on admission, resolved. Chronic medical problems 1. Type II diabetes, on metformin 2. Hypertension 3. CVA, chronic. 4. Hypercholesterolemia 5. Coronary artery disease 6. Urinary incontinence 7. Lymphoma Consultations Cardiology Procedures XRay, CTs & MRIs CT ANGIO CHEST PULMONARY EMBOLISM IMPRESSION: 1. Suboptimal examination due to respiratory motion artifacts in lower lobes. 2. There are small filling defects in lower lobe basal segmental arteries bilaterally suspicious for small pulmonary emboli. 3. Small bilateral effusions. 4. Reflux of contrast into the hepatic vein, suggesting poor cardiac output. Approved by: Bro Villeda M.D. on 09/30/2016 at 18:[address] Guajardo's H and P: "This is 80-year-old lady with history of coronary artery disease and stent placement 15 years ago done in [facility] , history of hypertension, hyperlipidemia, diabetes mellitus, hypothyroidism, CKD, h/o stroke, h/o of PAD with left carotid artery endarterectomy,hx of non- Hodgkins lymphoma and Chemo+Radiation 15 y/o and currently cancer free, admitted on 09/30/2016 with worsening BEVERLY and exertional angina, negative trops and on CT chest angio found to have small filling defects in lower lobe basal segmental arteries bilaterally suspicious for small pulmonary emboli also found to have severe cardiomyopathy of unknown etiology and severe MR. " Hospital Course This is a 71 years old female with multiple past medical history including type II diabetes, history of lymphoma non-Hodgkin's 17 years ago, hypertension, hypercholesterolemia, and coronary artery disease who presented for worsening dyspnea on exertion. 1. Acute pulmonary embolism, present on admission, active. -Visualized on CT scan -Heparin protocol for pulmonary embolism. -Telemetry monitoring -Bilateral venous duplex ultrasound to look for DVT negative 2. Systolic congestive heart failure, chronicity unknown, present on admission, active. -Pt has a history of CAD and radiation therapy for lymphoma. Possible acute coronary syndrome may have acutely worsened. -Echocardiogram today shows EF 15-20% -Likely the cause of bilateral pleural effusions -Daily weight -Monitored input and output -Continued aspirin 81 mg once daily, atorvastatin 20 mg at bedtime, and metoprolol succinate 25 mg daily. Held JANNETTE inhibitor for now due to RHETT. -Stopped IV fluids -Started furosemide 40 mg daily -Cardiology consulted and following. Their time and recommendations are appreciated. -Per most recent cardiology note the patient was transferred to [facility] for further management. This was not communicated to the hospitalist team. 3. Bilateral pleural effusion, present on admission, active. -Likely secondary to above 4. Acute renal failure, present on admission, improving. -BUN 35, Cr 1.54 on admission -Possibly cardiorenal -Held losartan, Lovenox, metformin -Stopped IV fluids 5. Hypomagnesium, acute, present on admission, resolved. -Pt was given magnesium replacement Chronic medical problems 1. Type II diabetes, on metformin -HgbA1c is 7.1% -Low dose correctional scale -Monitored blood glucose level and consider adding basal insulin 2. Hypertension -Continued hydrochlorothiazide 25 mg once daily and metoprolol succinate 25 mg once daily -Held JANNETTE inhibitor due to RHETT as above 3. CVA, chronic. -Continued aspirin and atorvastatin 4. Hypercholesterolemia -Continued atorvastatin 5. Coronary artery disease -As above 6. Urinary incontinence -Patient has had a decreased urine output but no post residual volume 7. Lymphoma -In remission Acetaminophen as needed for pain or fever. Zofran as needed for nausea/vomiting. Senna and Miralax as needed for constipation. Maalox as needed for heartburn. Exam Vital Signs (Last) Date Time Temp Pulse Resp B/P Pulse Ox O2 Delivery O2 Flow Rate FiO2 10/02/16 10:56 86 145/78 96 Nasal Cannula 2.00 10/02/16 09:18 36.8 20 Exam Constitutional: Well-nourished female in bed comfortably. In no acute distress. HEENT: Normocephalic and atraumatic. Sclerae anicteric. PERRL Mouth: Muscle mucosa, no thrush. Neck: Supple, no JVD, no carotid bruit, trachea is midline Chest: Normal respiratory effort and no chest wall deformity or tenderness. Lung: Clear to auscultation bilaterally with no rales, rhonchi, or wheezing. Heart: S1, S2 regular rate and rhythm. No gallop, no murmur Abdomen: Soft, nontender, nondistended. Bowel sounds normal or quadrant. No palpable mass Extremities: No edema, no calf tenderness. No cyanosis Neuro : Grossly nonfocal Test 09/30/16 16:00 10/01/16 02:25 10/01/16 05:45 10/01/16 06:20 Hold Hartman Top Tube Received (Received) Urine Color Yellow (YELLOW) Urine Appearance Clear (CLEAR,HAZY) Urine pH 5.0 (5.0-8.0) Urine Specific [place] 1.015 (1.003-1.035) Urine Protein Negativemg/dL (NEG,TRACE) Urine Glucose (UA) Negativemg/dL (NEGATIVE) Urine Ketones Negativemg/dL (NEGATIVE) Urine Occult Blood Trace (NEGATIVE) Urine Nitrite Negative (NEGATIVE) Urine Bilirubin Negative (NEGATIVE) Urine Urobilinogen Normalmg/dL (NORMAL) Urine Leukocyte Esterase Small (NEGATIVE) Urine RBC 3-10/hpf (0-2) Urine WBC 11-50/hpf (0-5) Urine Epithelial Cells Moderate/hpf (NONE-MOD) Urine Crystals None seen (NONE SEEN) Urine Bacteria Few/hpf (NONE-FEW) Urine Hyaline Casts Occasional/lpf (NONE) Urine Granular Casts None seen (NONE SEEN) Urine Waxy Casts None seen (NONE SEEN) Urine Red Blood Cell Casts None seen (NONE SEEN) Urine White Blood Cell Casts None seen (NONE SEEN) Urine Mucus None seen (None Seen) Urine Trichomonas None seen (NONE SEEN) Urine Yeast None (NONE SEEN) Urinalysis Comment None Urine Culture Reflexed Indicated Hemoglobin A1c 7.0% (4.8-5.6) Magnesium Level 2.1mg/dL (1.6-2.6) Test 10/01/16 14:28 10/02/16 06:09 10/02/16 12:02 Total Creatine Kinase 42U/L (21-215) Creatine Kinase MB 1.8ng/mL (0.0-5.3) Creatine Kinase MB % % (0.0-5.0) Troponin T < 0.010ug/L (0.0-0.011) Thyroid Stimulating Hormone (TSH) 7.660uIU/mL (0.450-4.500) Free Thyroxine 1.95ng/dL (0.82-1.77) White Blood Count 9.1th/mm3 (3.8-10.1) Red Blood Count 4.12mil/mm3 (3.90-5.20) Hemoglobin 10.3g/dL (12.0-15.6) Hematocrit 31.8% (35.0-46.0) Mean Corpuscular Volume 77.2fL (81-100) Mean Corpuscular Hemoglobin 25.0pg (27.0-35.0) Mean Corpuscular Hemoglobin Concent 32.4% (32.0-37.0) Red Cell Distribution Width 13.7% (12.3-15.4) Platelet Count 349bil/L (150-400) Neutrophils (%) (Auto) 70.3% (40-74) Lymphocytes (%) (Auto) 18.5% (14-46) Monocytes (%) (Auto) 9.5% (4-12) Eosinophils (%) (Auto) 0.7% (0-5) Basophils (%) (Auto) 0.8% (0-3) Sodium Level 132mEq/L (134-144) Potassium Level 4.1mEq/L (3.5-5.2) Chloride Level 95mEq/L (97-108) Carbon Dioxide Level 20mmol/L (18-29) Blood Urea Nitrogen 21mg/dL (8-27) Creatinine 0.92mg/dL (0.57-1.00) Estimat Glomerular Filtration Rate 86mL/min (>59) Glucose Level 147mg/dL (60-99) Calcium Level 8.5mg/dL (8.5-10.1) Total Bilirubin 0.3mg/dL (0.0-1.2) Aspartate Amino Transf (AST/SGOT) 20U/L (0-50) Alanine Aminotransferase (ALT/SGPT) 14U/L (0-32) Alkaline Phosphatase 57U/L (25-165) Total Protein 5.9g/dL (6.4-8.4) Albumin 3.6g/dL (3.4-5.0) Activated Partial Thromboplast Time 40.2sec (22.8-33.0) Discharge Medications Discharge Medications Ascorbic Acid (Vitamin C) 1,000 Mg Tab.chew 1,000 MG PO DAILY (Reported) Aspirin (Aspirin) 81 Mg Tablet 81 MG PO DAILY (Reported) Diclofenac ER (Diclofenac ER) 75 Mg Tablet.dr 75 MG PO DAILY (Reported) Hydrochlorothiazide (Hydrochlorothiazide) 25 Mg Tablet 25 MG PO DAILY (Reported ) Levothyroxine (Levothyroxine) 125 Mcg Tablet 125 MCG PO QAM (Reported) Losartan Potassium (Losartan Potassium) 25 Mg Tablet 25 MG PO DAILY (Reported) Metformin (Metformin) 850 Mg Tablet 850 MG PO BIDWM (Reported) Metoprolol Succinate ER (Metoprolol Succinate ER) 50 Mg Tab.er.24h 25 MG PO DAILY (Reported) Multivit with Calcium,Iron,Min (Therapeutic M) 1 Each Tablet 1 EACH PO DAILY ( Reported) Oxybutynin Chloride (Oxybutynin Chloride) 5 Mg Tablet 5 MG PO BID (Reported) Paroxetine (Paroxetine) 20 Mg Tablet 40 MG PO DAILY (Reported) Simvastatin (Simvastatin) 40 Mg Tablet 40 MG PO DAILY (Reported) Followup Plan Disposition: Transferred to [facility] Time spent 40 minutes Attending Statement I have seen and evaluated patient at bedside in addition to directly supervising care provided by resident physician. I agree with above documentation. Given clinical instability and medical complexity, transfer to higher level of care for expectant cardiac catheterization was indicated as per instructional systems design consultant. Naty Raimrez DO Oct 02, 2016 13:56 Bob Phillips DO Oct 03, 2016 07:50
== END 2016-10-02 13:30 | disposition short-term general hospital (02) | DRG 176 ==
LOC: SED 15:35 → MPC 18:59
PROVIDERS: ADMIT Internal Medicine; ATTEND Internal Medicine
DX: I26.99 Other pulmonary embolism without acute cor pulmonale (principal); N17.9 Acute kidney failure, unspecified; J90 Pleural effusion, not elsewhere classified; I42.9 Cardiomyopathy, unspecified; I50.20 Unspecified systolic (congestive) heart failure; Z79.82 Long term (current) use of aspirin; Z86.73 Personal history of transient ischemic attack (TIA), and cerebral infarction without residual deficits; E11.9 Type 2 diabetes mellitus without complications; Z85.72 Personal history of non-Hodgkin lymphomas; E78.00 Pure hypercholesterolemia, unspecified; I25.10 Atherosclerotic heart disease of native coronary artery without angina pectoris; E83.42 Hypomagnesemia; Z95.5 Presence of coronary angioplasty implant and graft; I34.0 Nonrheumatic mitral (valve) insufficiency; E03.9 Hypothyroidism, unspecified